=== PATIENT | female | born 1975 | race African-American/Black ===

== ENCOUNTER 2019-07-12 13:09 | Emergency (ER) | payer BC ==
[~2019-07-12] VITALS: Ht 157.5 cm; Wt 65.8 kg
--- NOTE | 2019-07-12 13:18 | NUR ---
ED Nurse Note: Pt ambulated to ED with c/o heavy menstruation x 4-5 days. Denies dizziness. Placed on bed. Will continue to monitor.
[2019-07-12 13:20] VITALS: BP 142/84
--- NOTE | 2019-07-12 14:24 | NUR ---
ED Nurse Note: IV LINE ESTABLISHED, IV SITE PATENT AND INTACT. BLOOD SPECIMEN AND URINE COLLECTED SENT TO LAB.
--- NOTE | 2019-07-12 14:49 | Emergency Room Report ---
History of Present Illness General Chief Complaint: Vaginal Source: Patient Present Illness HPI 44-year-old female, presents with vaginal bleeding x4 to 5 days now with 2 days of greater than 7 pads, patient is feeling lightheaded, feeling palpitations denies any chest pain, she does feel little more tired severity is moderate, constant, aggravating factors may be the fact that she had a biopsy last week, no alleviating factors Allergies: Uncoded Allergies: SEAFOOD (Allergy, Unknown, 07/12/19) Patient History Past Medical History: see triage record Now: No Reviewed Nursing Documentation: PMH: Agreed; PSxH: Agreed Nursing Documentation-PMH Past Medical History: No History, Except For Hx Hypertension: Yes Review of Systems All Other Systems: negative except mentioned in HPI Physical Exam Vital Signs Date Time Temp Pulse Resp B/P (MAP) Pulse Ox O2 Delivery O2 Flow Rate FiO2 07/12/19 13:16 97.5 88 15 147/83 (104) 98 Room Air Sp02 EP Interpretation: reviewed, normal General Appearance: well appearing, no apparent distress, alert Head: normocephalic, atraumatic Eyes: bilateral eye PERRL, bilateral eye EOMI ENT: uvula midline, moist mucus membranes Neck: supple, thyroid normal, supple/symm/no masses Respiratory: lungs clear, no respiratory distress, no retraction, no accessory muscle use Cardiovascular #1: normal peripheral pulses, regular rate, rhythm, no edema, no gallop, no murmur Gastrointestinal: non tender, soft, no guarding, no rebound Musculoskeletal: normal inspection Neurologic: alert, oriented x3 Psychiatric: mood/affect normal Skin: no rash, warm/dry Medical Decision Making Diagnostic Impression: Primary Impression: Fibroid uterus Qualified Codes: D25.9 - Leiomyoma of uterus, unspecified Additional Impression: Dysfunctional uterine bleeding ER Course 44-year-old female presents with uterine bleeding differential diagnosis includes fibroids, dysfunctional uterine bleeding, endometrial carcinoma postoperative bleeding Hemoglobin is 11, ultrasound shows numerous fibroids Counseled patient to continue taking her iron Patient will follow-up with her [employer] Disposition home with return precautions Laboratory Tests Test 07/12/19 14:20 White Blood Count 7.7 K/UL (4.8-10.8) Red Blood Count 4.40 M/UL (4.20-5.40) Hemoglobin 11.1 G/DL (12.0-16.0) L Hematocrit 34.5 % (37.0-47.0) L Mean Corpuscular Volume 78 FL (80-99) L Mean Corpuscular Hemoglobin 25.3 PG (27.0-31.0) L Mean Corpuscular Hemoglobin Concent 32.3 G/DL (32.0-36.0) Red Cell Distribution Width 21.0 % (11.6-14.8) H Platelet Count 274 K/UL (150-450) Mean Platelet Volume 5.7 FL (6.5-10.1) L Neutrophils (%) (Auto) 69.4 % (45.0-75.0) Lymphocytes (%) (Auto) 23.9 % (20.0-45.0) Monocytes (%) (Auto) 5.3 % (1.0-10.0) Eosinophils (%) (Auto) 0.7 % (0.0-3.0) Basophils (%) (Auto) 0.7 % (0.0-2.0) Prothrombin Time 10.7 SEC (9.30-11.50) Prothrombin Time INR 1.0 (0.9-1.1) PTT 25 SEC (23-33) Urine Color Pale yellow Urine Appearance Slightly cloudy Urine pH 6 (4.5-8.0) Urine Specific [place] 1.010 (1.005-1.035) Urine Protein Negative (NEGATIVE) Urine Glucose (UA) Negative (NEGATIVE) Urine Ketones Negative (NEGATIVE) Urine Blood 5+ (NEGATIVE) H Urine Nitrite Negative (NEGATIVE) Urine Bilirubin Negative (NEGATIVE) Urine Urobilinogen Normal MG/DL (0.0-1.0) Urine Leukocyte Esterase Negative (NEGATIVE) Urine RBC Tntc /HPF (0 - 2) H Urine WBC 0 /HPF (0 - 2) Urine Squamous Epithelial Cells Few /LPF (NONE/OCC) Urine Bacteria Few /HPF (NONE) Urine HCG, Qualitative Negative (NEGATIVE) Sodium Level 136 MMOL/L (136-145) Potassium Level 4.0 MMOL/L (3.5-5.1) Chloride Level 105 MMOL/L (98-107) Carbon Dioxide Level 24 MMOL/L (21-32) Anion Gap 7 mmol/L (5-15) Blood Urea Nitrogen 9 mg/dL (7-18) Creatinine 0.7 MG/DL (0.55-1.30) Estimate Glomerular Filtration Rate > 60 mL/min (>60) Glucose Level 90 MG/DL (74-106) Calcium Level 8.7 MG/DL (8.5-10.1) Total Bilirubin 0.6 MG/DL (0.2-1.0) Aspartate Amino Transferase (AST) 15 U/L (15-37) Alanine Aminotransferase (ALT) 23 U/L (12-78) Alkaline Phosphatase 100 U/L (46-116) Total Protein 8.1 G/DL (6.4-8.2) Albumin 3.8 G/DL (3.4-5.0) Globulin 4.3 g/dL Albumin/Globulin Ratio 0.9 (1.0-2.7) L CT/MRI/US Diagnostic Results CT/MRI/US Diagnostic Results : Impression Procedure: US Pelvis TransVag Complete Indication: Pelvic pain with vaginal bleeding Technique: Transabdominal and endovaginal pelvic ultrasound was performed. Findings: Uterus appears enlarged. There are multiple heterogeneous masses in the uterus, some with internal color flow. One of the larger masses measures 2.7 cm in diameter. Some nabothian cysts are noted within the cervix, the largest measures 1.2 cm diameter. The endometrium is poorly evaluated. Measures proximally 1 cm in thickness which may be within normal limits in the premenopausal female. No adnexal lesions identified. Symmetric color and Doppler flow visualized in the bilateral ovaries. Trace simple appearing free fluid is noted in the cul-de-sac. Impression: * Multiple heterogeneous masses in the uterus suggesting fibroids. Correlate clinically. Consider further evaluation with follow-up nonemergent gynecologic protocoled MRI of the pelvis without and with contrast. * Symmetric color Doppler flow visualized in the bilateral ovaries. * Trace a simple appearing free fluid noted in the pelvis possibly physiologic. * Endometrium measures less than 1 cm in thickness which may be within normal limits for the premenopausal female. If patient is postmenopausal then further gynecologic evaluation is warranted. Dictated By: Yifan Clarke M.D. Electronically Signed By: Yifan Clarke M.D. Signed Date/Time 07/12/19 1626 Last Vital Signs Date Time Temp Pulse Resp B/P (MAP) Pulse Ox O2 Delivery O2 Flow Rate FiO2 07/12/19 13:20 97.6 72 15 142/84 98 Room Air Disposition: HOME, SELF-CARE Condition: Stable Referrals: NON PHYSICIAN (PCP) [facility] Malina Aguliar [facility] Patient Instructions: Dysfunctional Uterine Bleeding, Uterine Fibroids, Easy-to -Read Additional Instructions: The patient was provided with discharge instructions, notified to follow-up with a primary care doctor and or specialist in the next 24-48 hours, and to return to the ED if they have worsening of their symptoms. Please note that this report is being documented using [employer] technology. This can lead to erroneous entry secondary to incorrect interpretation by the dictating instrument. PLEASE FOLLOW-UP WITH YOUR OBGYN, PLEASE CONTINUE TAKING YOUR IRON. Ko Curtis MD Jul 12, 2019 14:49
[2019-07-12 14:51] LABS: BASOPHILS % (AUTO) 0.7 % (0.0-2.0); EOSINOPHILS % (AUTO) 0.7 % (0.0-3.0); HEMATOCRIT 34.5 % (37.0-47.0); HEMOGLOBIN 11.1 G/DL (12.0-16.0); LYMPHOCYTES % (AUTO) 23.9 % (20.0-45.0); MEAN CORPUSCULAR VOLUME 78 FL (80-99); MONOCYTES % (AUTO) 5.3 % (1.0-10.0); NEUTROPHILS % (AUTO) 69.4 % (45.0-75.0); PLATELET COUNT 274 K/UL (150-450); WHITE BLOOD COUNT 7.7 K/UL (4.8-10.8)
[2019-07-12 14:57] LABS: APPEARANCE,URINE SLIGHTLY CLOUDY; BILIRUBIN, URINE NEGATIVE (NEGATIVE); COLOR,URINE PALE YELLOW; GLUCOSE, URINE (UA) NEGATIVE (NEGATIVE); KETONES,URINE NEGATIVE (NEGATIVE); LEUKOCYTE ESTERASE ,URINE NEGATIVE (NEGATIVE); NITRITE,URINE NEGATIVE (NEGATIVE); PH,URINE 6 (4.5-8.0); PROTEIN,URINE NEGATIVE (NEGATIVE); UROBILINOGEN,URINE NORMAL MG/DL (0.0-1.0)
[2019-07-12 15:03] LABS: ANION GAP 7 mmol/L (5-15); BLOOD UREA NITROGEN 9 mg/dL (7-18); CALCIUM 8.7 MG/DL (8.5-10.1); CARBON DIOXIDE 24 MMOL/L (21-32); CHLORIDE 105 MMOL/L (98-107); CREATININE 0.7 MG/DL (0.55-1.30); SODIUM 136 MMOL/L (136-145)
[2019-07-12 15:08] LABS: ALANINE AMINOTRANSFERASE 23 U/L (12-78); ALBUMIN 3.8 G/DL (3.4-5.0); ALBUMIN/GLOBULIN RATIO 0.9 (1.0-2.7); ALKALINE PHOSPHATASE 100 U/L (46-116); ASPARTATE AMINO TRANSFERASE 15 U/L (15-37); BILIRUBIN,TOTAL 0.6 MG/DL (0.2-1.0)
--- NOTE | 2019-07-12 16:31 | Diagnostic Imaging Report ---
Indication: Pelvic pain with vaginal bleeding Technique: Transabdominal and endovaginal pelvic ultrasound was performed. Findings: Uterus appears enlarged. There are multiple heterogeneous masses in the uterus, some with internal color flow. One of the larger masses measures 2.7 cm in diameter. Some nabothian cysts are noted within the cervix, the largest measures 1.2 cm diameter. The endometrium is poorly evaluated. Measures proximally 1 cm in thickness which may be within normal limits in the premenopausal female. No adnexal lesions identified. Symmetric color and Doppler flow visualized in the bilateral ovaries. Trace simple appearing free fluid is noted in the cul-de-sac. Impression: * Multiple heterogeneous masses in the uterus suggesting fibroids. Correlate clinically. Consider further evaluation with follow-up nonemergent gynecologic protocoled MRI of the pelvis without and with contrast. * Symmetric color Doppler flow visualized in the bilateral ovaries. * Trace a simple appearing free fluid noted in the pelvis possibly physiologic. * Endometrium measures less than 1 cm in thickness which may be within normal limits for the premenopausal female. If patient is postmenopausal then further gynecologic evaluation is warranted.
[2019-07-12 16:50] VITALS: BP 140/86
--- NOTE | 2019-07-12 16:50 | NUR ---
ER DISCHARGE NOTE: Patient is cleared to be discharged per ERMD, pt is aox4, on room air, with stable vital signs. pt was given dc and prescription instructions, pt was able to verbalize understanding, pt id band and iv site removed without complications. pt is able to ambulate with steady gait. pt took all belongings.
== END 2019-07-12 16:50 | disposition home or self-care (01) ==
LOC: EMR 14:17
DX: D25.9 Leiomyoma of uterus, unspecified (principal); N93.8 Other specified abnormal uterine and vaginal bleeding; I10 Essential (primary) hypertension; Z91.013 Allergy to seafood
CPT/HCPCS: 36415; 76830; 76856; 80053; 81003; 81025; 85025; 85610; 85730; 86850; 86900; 86901; 99284